=== PATIENT | female | born 1940 | race Caucasian/White ===

== ENCOUNTER 2023-09-21 14:35 | Outpatient (AMB) | payer BC, SELFPAY ==
--- NOTE | 2023-09-21 14:42 | MHC.OFFVIS ---
Vital Signs 09/21/23 14:45 Height 4 ft 11 in Weight 98 lb 2 oz BMI 19.8 BP 118/72 Blood Pressure Location Rt brachial Position Sitting Respiration 16 Pulse 60 Pulse Source Pulse Oximeter Pulse Oximetry (%) 96 Oxygen Delivery Method Room Air Intake Visit Reasons: ENP-Alzheimers dementia/Sleep dis-CONF Intake Note: Pt presents to the office for new pt evaluation for Alzheimer's, dementia. Outside Physical Damage Appraiser Required: No Allergies lactose Allergy (Mild, Verified 09/21/23 14:48) Nausea and Vomiting Medication List - Last Reconciled 09/21/23 by Shelbi Ball MD apixaban (Eliquis) 5 mg PO BID atorvastatin (Lipitor) 80 mg PO DAILY cetirizine (Zyrtec) 10 mg PO DAILY PRN digoxin 125 mcg PO DAILY fluoxetine (Prozac) 40 mg PO DAILY furosemide (Lasix) 40 mg PO DAILY lactobacillus combination no.4 (Probiotic) 3,000 mmu cells PO DAILY metoprolol succinate ER 50 mg PO DAILY multivitamin 1 tab PO DAILY nitroglycerin 0.4 mg sublingual Q5M PRN omeprazole 20 mg PO DAILY potassium chloride 20 mEq PO DAILY rivastigmine 4.6 mg transdermal DAILY HPI Comments Details: 82y/o right handed female comes for further management of Dementia. she is accompanied by her daughters who help with history. She was diagnosed with Dementia in 2019- initially by Dr. Shabazz and then by Dr. Dutta. She had MRI brain , Sleep study , Neuropsych assessment , labs etc. she was started on donepezil but could not tolerate and was switched to rivastigmine patch. She lives with her daughter and now. Now she needs help with making breakfast, preparing food , needs help with showers etc, short term memory issues, now has some confusion with people, time and place. No behavior issues she sleeps good. she was diagnosed with severe sleep apnea- AHI 47 and oxygen anna marie 83%- was on CPAP stopped using about 1 year ago. She has vivid dreams, acting out her dreams etc. She is incontinent . Mild paranoid thoughts. [facility] Medical History (Updated 09/21/23 @ 15:33 by Shelbi Ball MD) Alzheimer's dementia Septic shock Hyperlipidemia Asymptomatic proteinuria Osteoporosis HTN (hypertension) Myocardial infarct Cardiomyopathy CHF (congestive heart failure) CKD (chronic kidney disease) Diverticulosis Hiatal hernia Atrial fibrillation PLMD (periodic limb movement disorder) Obstructive sleep apnea COVID Depression Surgical History Hx of CABG H/O total hysterectomy Family History Mother No problems noted. Father No problems noted. Social History Household Members: Children Caregiver staying overnight: Yes Housing: House Alcohol intake: current Comment: seldom Patient Tobacco Use Status: Former Tobacco user Use of substances other than those prescribed or required for medical reasons: No Review of Systems Neuro Reports confusion Psych Reports confusion Physical Exam Vital Signs: Last Vital Signs Pulse 60 09/21/23 14:45 Resp 16 09/21/23 14:45 BP 118/72 09/21/23 14:45 Pulse Ox 96 09/21/23 14:45 Oxygen Delivery Method Room Air 09/21/23 14:45 BMI result Body Mass Index 19.8 Const General: cooperative, healthy appearing and confusion Nutritional Appearance: thin Orientation/consciousness: confusion Neuro Other: MOCA 2 General: tone normal, moves all extremities, no focal motor deficits and confusion Cranial nerves: Yes Facial sensation intact/muscles of mastication intact, Yes Bilaterally intact EOM present, Yes Nystagmus not present, Yes Normal facial strength present, Yes Midline tongue present and Yes Ability to bilaterally elevate shoulders present Cognition (Neuro): abnormal cognition Gait exam (Neuro): Normal gait present Motor exam (neuro): 5/5 motor strength present throughout and Normal motor muscle tone present throughout Deep tendon reflexes (DTR's): Right triceps reflex intensity grade: 2+, Left triceps reflex intensity grade: 2+, Rt Biceps (C5, C6): 2+, Left biceps reflex intensity grade: 2+, Right brachioradialis reflex intensity grade: 2+, Left brachioradialis reflex intensity grade: 2+, Right patellar reflex intensity grade: 2+ and Left patellar reflex intensity grade: 2+ Coordination: [id number] test normal Assessment & Plan Assessment & Plan (1) Alzheimer's dementia: Comment: Advanced Code(s): G30.9 - Alzheimer's disease, unspecified; F02.80 - Dementia in other diseases classified elsewhere, unspecified severity, without behavioral disturbance, psychotic disturbance, mood disturbance, and anxiety Category: Medical Plan Continue Rivastigmine 4.6 mg qd Will avoid memantine due to her CKD Contact Senior services for [facility] Home Health aide Coding Level of Care Code New Pt Level 4 (09668) Diagnoses Alzheimer's dementia G30.9; F02.80
[2023-09-21 14:45] VITALS: BP 118/72; PULSE 60; RESP 16; O2SAT 96; BMI 19.8
== END 2023-09-21 15:41 | disposition home or self-care (01) ==
PROVIDERS: PCP Internal Medicine; Visit Provider Psychiatry & Neurology Neurology
DX: G30.9 Alzheimer's disease, unspecified (principal); F02.80 Dementia in other diseases classified elsewhere, unspecified severity, without behavioral disturbance, psychotic disturbance, mood disturbance, and anxiety
CPT/HCPCS: 99204

== ENCOUNTER → 2023-09-21 14:35 | Outpatient (BNVA) | payer BC, SELFPAY | PROVIDERS: PCP Internal Medicine; Visit Provider Psychiatry & Neurology Neurology ==